=== PATIENT | male | born 1940 | race Caucasian/White ===

== ENCOUNTER 2024-11-23 05:51 | Day surgery (SDC) | payer MEDICARE, BC ==
[~2024-11-23 05:51] MED LIST: ALPRAZolam 0.25 MG TAB PO PRN; ALPRAZolam 0.5 MG TAB PO PRN; NITROGLYCERIN SL TABS 0.4 MG TAB SUBLINGUAL PRN
[2024-11-23] MEDS: SODIUM CHLORIDE 0.9% 1,000 ML in EMPTY BAG 1 BAG IV SCH (06:00)
[2024-11-23] MEDS: IV FLUID CONTINUATION 1,000 ML IV ONE (06:01)
[2024-11-23 06:34] VITALS: RESP 16; TEMP 97.1
[2024-11-23 06:36] LABS: Basophils # (A) 0.03 10*3/uL (0.00-0.10); Basophils % (A) 0.4 %; Eosinophils % (A) 1.3 %; HCT 42.5 % (39.6-50.0); Lymphocytes # (A) 4.77 10*3/uL (0.90-5.00); Lymphocytes % (A) 61.1 %; MCH 33.9 pg (27.0-32.0); MCHC 35.3 g/dL (32.0-37.0); MCV 96.2 fL (80.0-97.0); Mean Platelet Volume 10.3 fL (9.5-12.2); Monocytes # (A) 0.42 10*3/uL (0.20-1.00); Monocytes % (A) 5.4 %; Neutrophils # (A) 2.47 10*3/uL (1.80-7.70); Neutrophils % (A) 31.5 %; Platelet Count 140 10*3/uL (140-440); RBC 4.42 10*6/uL (4.40-5.60); RDW 12.3 % (11.5-14.5); WBC 7.81 10*3/uL (4.50-10.00)
[2024-11-23 06:55] LABS: African American GFR (CKD) >90 (>60 ml/min/1.73 sqM); Anion Gap 7 mmol/L; Blood Urea Nitrogen 17 mg/dL (9-20); Calcium 9.2 mg/dL (8.4-10.2); Carbon Dioxide 26 mmol/L (22-30); Chloride 104 mmol/L (98-107); Glucose 106 mg/dL (74-99); Non-African American GFR(CKD) >90 (>60 ml/min/1.73 sqM); Potassium 3.7 mmol/L (3.5-5.1); Sodium 137 mmol/L (137-145)
[2024-11-23] MEDS ORDERED: ASPIRIN 325 MG TAB PO ONE (07:00)
[2024-11-23] MEDS: HEPARIN SODIUM,PORCINE (1 ML) 2,500 UNIT in SODIUM CHLORIDE 0.9% 250 ML IRRIGATION PRN (07:31)
[2024-11-23] MEDS: HEPARIN SODIUM,PORCINE 10,000 UNIT in SODIUM CHLORIDE 0.9% 1,000 ML IRRIGATION PRN (07:31)
[2024-11-23] MEDS: fentaNYL (PF) 50 MCG/ML 2 ML AMP IVP ONE (07:34)
[2024-11-23] MEDS: LIDOCAINE 1% INJ 10MG/ML (20 ML MDV) SQ ONE (07:34)
[2024-11-23] MEDS: VERAPAMIL SYRINGE (5 MG/10 ML) INTRAARTER ONE (07:36)
[2024-11-23] MEDS: HEPARIN SODIUM 1,000 UN/ML (10ML VL) IV ONE (07:54)
[2024-11-23] MEDS: MIDAZOLAM 2 MG/2 ML VIAL IVP ONE (07:54)
[2024-11-23] MEDS: IOPAMIDOL-370 100ML BTL INJ ONE ×3 (08:14→08:26)
[2024-11-23] MEDS ORDERED: RX INFO: IV CONTRAST WAS GIVEN 1 EACH MISC MISCELLANE PRN (08:40)
[2024-11-23] MEDS ORDERED: SODIUM CHLORIDE 0.9% 1,000 ML IV SCH (08:45)
--- NOTE | 2024-11-23 08:49 | P.CARDCATH ---
Date of Procedure: 11/23/24 Description of Procedure: Cardiac Catheterization: The patient is an 84-year-old male with a known history of CAD status post CABG 1994 who has been complaining of progressive symptoms of exertional chest discomfort, increasing in frequency and intensity. Recommendations were made regarding cardiac catheterization, the risks and the complications were discussed with the patient who is in full understanding and agreement. Procedure Description: Patient was brought to senior laboratory technician in fasting semi-sedated state after receiving Fentanyl and Benadryl achieiving moderate conscious sedated state. Using Xylocaine Anesthesia and modified Seldinger technique, a 6-Palestinian sheath was introduced in the left radial artery . Subsequently, selective coronary angiography was performed using a 5-Palestinian 4 bend Sarina catheter. Multiple views of the coronary artery including hemiaxial views were obtained. The right coronary Sarina catheter was used to cannulate the STONE to the LAD. The right Sarina catheter was used to cross the aortic valve and LVEDP was calculated. A 6 Palestinian pigtail was introduced into the system and an GONG view of the ascending aorta was performed. Subsequently attempt to cannulate the ostium of the SVG to the OM with a 6 Palestinian LCB catheter were unsuccessful. Following that, catheter and sheath were removed. Hemostasis was obtained with deployment of vascular band . There was no immediate complication. Patient was returned to room in stable condition. Of note, the patient received a total of 4500 units of intravenous heparin as well as intra-arterial verapamil. Findings: Fluoroscopy: Severe calcifications of the coronary arteries were noted. Left main: This is a large size vessel, bifurcating into LAD and left circumflex, the left main distally has a 70 to 80% stenosis, heavily calcified. LAD: This vessel is totally occluded proximally with no antegrade flow Left circumflex: This vessel is totally occluded proximally after the takeoff of a small obtuse marginal branch. There is retrograde flow in the mid OM. RCA: This is a dominant vessel, bifurcating distally to PDA and PLV. The proximal RCA has a 80% stenosis. The mid RCA is totally occluded with bridging collaterals filling the distal RCA slowly. There is collaterals to the PDA from the left coronary system from the LAD and the left circumflex. STONE to the LAD: The distal anastomotic site is patent the flow into the LAD is brisk the STONE is tortuous, there is retrograde flow into the septal screw machine tool setter and the diagonal branch SVG to the OM. Describes appears to be heavily calcified and no antegrade flow could be visualized Left Ventriculogram: Not performed. Aortogram: Performed in the GONG view and revealed a tricuspid valve with no significant aortic regurgitation. Calcification of the SVG to the OM was noted with no clear antegrade flow Hemodynamics: There was no gradient across aortic valve, LVEDP was 16-18 mmHg Conclusion: 1. Calcified coronary arteries 2. Chronically occluded LAD and left circumflex 3. 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 Patent STONE to the LAD 5. 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 The patient is not a good candidate for percutaneous revascularization. The findings and the recommendations were discussed with the patient and the family and they were in full understanding and agreement. Duration of sedation is 56 minutes.
[2024-11-23] MEDS ORDERED: RANOLAZINE 500 MG TAB.ER.12H PO SCH (09:00)
[2024-11-23] MEDS ORDERED: NON FORMULARY DRUG (Aspirin [Adult Low Dose Aspirin Ec] 81 MG Tablet) PO SCH (09:00)
[2024-11-23] MEDS ORDERED: amLODIPine 2.5 MG TAB PO SCH (09:00)
[2024-11-23] MEDS ORDERED: LOSARTAN 25 MG TAB PO SCH (09:00)
[2024-11-23] MEDS ORDERED: ATORVASTATIN 40 MG TAB PO SCH (09:00)
[2024-11-23 11:15] VITALS: BP 165/72; PULSE 71
== END 2024-11-23 12:00 | disposition home or self-care (01) ==
LOC: CATHCVL 05:51
PROVIDERS: ATTEND Internal Medicine Interventional Cardiology
DX: I25.810 Atherosclerosis of coronary artery bypass graft(s) without angina pectoris (principal); Z95.1 Presence of aortocoronary bypass graft; Z79.82 Long term (current) use of aspirin; E78.5 Hyperlipidemia, unspecified; F17.210 Nicotine dependence, cigarettes, uncomplicated
CPT/HCPCS: 93459; 93567; 80048; 85025; C1769 ×2; C1894; J2250; J1644 ×3; J2003; J3010; Q9967